=== PATIENT | male | born 1945 | race Caucasian/White ===

== ENCOUNTER → 2018-05-31 10:16 | Outpatient (CLI) | payer MEDICARE, OTHER, SELFPAY ==
--- NOTE | 2018-05-31 | DI.ECHO.S_ITS ---
[facility] +---------+ [facility] +---------+ : : [address] : : : : [id number] : : : : Phone: [phone] : : [phone] +---------+ Echocardiogram Report + + :Name: DACIA KHANNA Study Date: 05/31/2018 Height: 72 in : :[facility] Weight: 290 lb : : Gender: Male BSA: 2.5 m2 : :: 1945 Age: 73 yrs BP: 138/100 mmHg: :Reason For Study: Pulmonary - Hypertension : :Ordering Physician: Kenton : :Brad Performed By: Vanessa Kwon : :Referring: Suresh Iraheta : + + Interpretation Summary Left ventricular systolic function is normal with the ejection fraction grossly estimated to be 55-65% without obvious focal wall motion abnormalities noted but poor endocardial definition reduces the sensitivity for the detection of such. There is probable moderate concentric left ventricular hypertrophy but diastolic function could not be accurately assessed due to atrial fibrillation. The right ventricle is borderline dilated and right ventricular systolic function is at the lower limits of normal. The right ventricular systolic pressure is estimated at 43 mmHg assuming a right atrial pressure of 3 mm Hg. Both atria are moderately dilated. There is mild mitral regurgitation and mild to moderate tricuspid regurgitation. The aortic valve is moderately calcified with probable mild aortic stenosis with a peak aortic velocity of 2.6 m/sec and a mean gradient of 15 mmHg. The aortic root and aortic arch are mildly enlarged and the ascending aorta is moderately enlarged. The patient was in atrial fibrillation with heart rates between 59-78 bpm during the exam. Procedure: A two-dimensional transthoracic echocardiogram with color flow and Doppler was performed. The study quality was technically difficult. There is no prior echocardiogram noted for this patient. A contrast injection of Definity was performed to improve assessment of LV function. The patient was in atrial fibrillation with heart rates between 59-78 bpm during the exam. Left Ventricle: The left ventricle is normal in size. There is moderate concentric left ventricular hypertrophy. Left ventricular systolic function is normal. Left ventricular ejection fraction is estimated to be 55-65%. There are no obvious focal wall motion abnormalities noted but poor endocardial definition reduces the sensitivity for the detection of such. Diastolic function could not be accurately assessed due to atrial fibrillation. Right Ventricle: The right ventricle is borderline dilated. Right ventricular systolic function is at the lower limits of normal. Atria: Both atria are moderately dilated. The interatrial septum is intact with no evidence for an atrial septal defect. Mitral Valve: There is mild to moderate mitral annular calcification. The mitral valve is not well visualized. The mitral valve is grossly normal. There is mild mitral regurgitation. Aortic Valve: The aortic valve is not well visualized. The aortic valve is moderately calcified. Leaflet mobility is mild to moderately reduced. There is mild aortic stenosis. The peak aortic velocity is 2.6 m/sec. The aortic valve mean gradient is 15 mmHg. The calculated aortic valve area is 2.0 cm2. Severity ratio is 0.33. There is trace aortic regurgitation. Tricuspid Valve: The tricuspid valve leaflets are thin and pliable. There is mild to moderate tricuspid regurgitation. The right ventricular systolic pressure is estimated at 43 mmHg assuming a right atrial pressure of 3 mm Hg. Pulmonic Valve: The pulmonic valve is not well visualized. The pulmonic valve is not well seen, but is grossly normal. There is no pulmonic valvular regurgitation. Great Vessels: The aortic root is mildly dilated. The ascending aorta is moderately enlarged. The aortic arch is mildly enlarged. The IVC is of normal diameter and collapses greater than 50% with a sniff. This suggests a low right atrial pressure of 3 mm Hg. Pericardium/ Pleura There is no pericardial effusion. There is no pleural effusion. MMode/2D Measurements & Calculations LVIDd: 4.3 cm LVOT diam: 2.7 cm LVIDs: 2.9 cm Ao root diam: 3.8 cm FS: 34.1 % Aortic Jxn: 3.5 cm IVSd: 1.4 cm asc Aorta Diam: 4.0 cm LVPWd: 1.1 cm Ao Arch Diam (Prox Trans): 3.1 cm LV greenfield. diameter/BSA (cm/m^2): 1.7 LV sys. diameter/BSA (cm/m^2): 1.1 LA dimension: 5.3 cm RA long axis: 5.7 cm LA A2 area: 34.2 cm2 RA area: 26.7 cm2 LA A4 area: 25.3 cm2 RA vol: 106.6 ml LA length (vol): 6.0 cm RA : 42.7 ml/m2 LA vol: 122.6 ml IVC diam: 1.6 cm LA vol index: 49.1 ml/m2 RVDd major: 6.2 cm RVD1 (basal): 4.8 cm RVD2 (mid): 4.4 cm Doppler Measurements & Calculations Ao V2 max: 264.4 cm/sec LVOT Max Reyes: 104.0 cm/sec Ao V2 mean: 176.1 cm/sec LV V1 max P.3 mmHg Ao max P.0 mmHg LV V1 VTI: 18.2 cm Ao mean P.2 mmHg RASHAD(I,D): 2.0 cm2 Ao V2 VTI: 54.7 cm RASHAD(V,D): 2.3 cm2 sev ratio: 0.33 RASHAD indexed to BSA (cm^2/m^2): 0.78 MV E max reyes: 115.2 cm/sec TR max reyes: 315.3 cm/sec MV A max reyes: 29.5 cm/sec TR max P.8 mmHg MV E/A: 3.9 PA V2 max: 77.1 cm/sec MV dec time: 0.23 sec PA V2 mean: 48.5 cm/sec MV P1/2t: 67.6 msec PA mean P.2 mmHg PA Accel Time: 0.14 sec MV P1/2t max reyes: 115.4 cm/sec MVA(P1/2t): 3.3 cm2 Reading Physician:PM
== END ==
PROVIDERS: PCP Internal Medicine; Visit Provider Specialist
DX: I27.20 Pulmonary hypertension, unspecified (principal)
CPT/HCPCS: 93306; Q9957

== ENCOUNTER → 2020-01-07 14:57 | Outpatient (CLI) | payer MEDICARE, OTHER, SELFPAY ==
--- NOTE | 2020-01-07 | DI.ECHO.S_ITS ---
[place] +---------+ Hospital +---------+ : : [address] : : : : [id number] : : : : Phone: [phone] : : [phone] +---------+ Echocardiogram Report + + :Name: DACIA KHANNA Study Date: 01/07/2020 Height: 72 in : :[facility] Weight: 273 lb : : Gender: Male BSA: 2.4 m2 : :: 1945 Age: 75 yrs BP: 142/80 mmHg: :Reason For Study: pulmonary hypertension : :Ordering Physician: Eugenio : :Brad Performed By: Marielos Kwok : :Referring: EUGENIO MURPHY : + + Interpretation Summary The left ventricle is not well visualized but systolic function is likely normal without any obvious focal wall motion abnormalities with the ejection fraction grossly estimated to be 60-65%. There is moderate-severe concentric left ventricular hypertrophy but diastolic function could not be accurately assessed due to atrial fibrillation. There has been no significant change since the previous study. The right ventricle is mildly dilated and systolic function is likely mildly reduced but grossly appears grossly unchanged compared to the previous study. The right ventricular systolic pressure is estimated to be at least 32 mmHg based on an estimated right atrial pressure of 8 mm Hg but this is likely a significant underestimate given the angle of interrogation. Both atria are mildly dilated but both atria have significantly decreased in size since the prior echo exam. The aortic valve is not well visualized but there is probable moderate aortic stenosis that is likely mildly progressive compared to the previous study with a peak aortic velocity of 3.0 m/s and a mean gradient of 21 mmHg, compared to 2.6 m/s and 15 mmHg, respectively, previously. There is mild to moderate tricuspid regurgitation that is unchanged compared to the previous study. The aortic root and ascending aorta are mildly enlarged but unchanged compared to the previous study. The aortic arch is mildly enlarged and measures slightly larger compared to the previous study. The patient was in atrial fibrillation with heart rates between 61-81 bpm with occasional PVCs during the exam but this is unchanged compared to the previous study. Procedure: A two-dimensional transthoracic echocardiogram with color flow and Doppler was performed. The study quality was technically difficult. A contrast injection of Definity was performed to improve assessment of LV function. Comparison is made with the echocardiogram of 05/31/2018. The patient was in atrial fibrillation with heart rates between 61-81 bpm during the exam. The patient had occasional PVCs during the exam. This is unchanged compared to the previous study. Left Ventricle: The left ventricle is not well visualized. There is moderate-severe concentric left ventricular hypertrophy. The left ventricle is normal in size. Left ventricular systolic function is normal without focal wall motion abnormalities. The ejection fraction is estimated to be 60-65%. Diastolic function could not be accurately assessed due to atrial fibrillation. There has been no significant change since the previous study. Right Ventricle: The right ventricle is mildly dilated. Right ventricular systolic function is mildly reduced. This is grossly unchanged compared to the previous study. Atria: Both atria are mildly dilated. Both atria have significantly decreased in size since the prior echo exam. There is no Doppler evidence for an interatrial shunt. Mitral Valve: There is moderate mitral annular calcification. The mitral valve is not well visualized. There is trace mitral regurgitation. There has been no significant change since the previous study. Aortic Valve: The aortic valve is not well visualized. The aortic valve is moderately calcified. There is moderately reduced leaflet mobility. There is moderate aortic stenosis. This is likely mildly progressive compared to the previous study. The peak aortic velocity is 3.0 m/sec. The aortic valve mean gradient is 21 mmHg. There is trace aortic regurgitation. Tricuspid Valve: The tricuspid valve leaflets are thin and pliable. There is mild to moderate tricuspid regurgitation. This is unchanged compared to the previous study. The right ventricular systolic pressure is estimated to be at least 32 mmHg based on an estimated right atrial pressure of 8 mm Hg. But this is likely significant underestimate given the angle of interrogation. Pulmonic Valve: The pulmonic valve is not well visualized. The pulmonic valve is not well seen, but is grossly normal. There is no pulmonic valvular regurgitation. Great Vessels: The aortic root is mildly dilated. The ascending aorta is mildly enlarged. This is unchanged compared to the previous study. The aortic arch is mildly enlarged. This is slightly larger compared to the previous study. The IVC is dilated (diameter is greater than 2.1 cm) yet it collapses greater than 50% with a sniff. This suggests a right atrial pressure of 8 mm Hg. Pericardium/ Pleura There is no pericardial effusion. MMode/2D Measurements & Calculations LVIDd: 4.3 cm LVOT diam: 2.7 cm LVIDs: 2.9 cm Ao root diam: 3.8 cm FS: 31.9 % asc Aorta Diam: 3.9 cm IVSd: 1.8 cm Ao Arch Diam (Prox Trans): 3.4 cm LVPWd: 2.1 cm LV greenfield. diameter/BSA (cm/m^2): 1.8 LV sys. diameter/BSA (cm/m^2): 1.2 LA A2 area: 29.6 cm2 RA long axis: 6.5 cm LA A4 area: 24.7 cm2 RA area: 23.7 cm2 LA length (vol): 6.8 cm RA vol: 73.1 ml LA vol: 91.0 ml RA : 30.1 ml/m2 LA vol index: 37.4 ml/m2 IVC diam: 2.4 cm RVD1 (basal): 4.1 cm TAPSE: 1.8 cm Doppler Measurements & Calculations Ao V2 max: 296.7 cm/sec LVOT Max Reyes: 123.6 cm/sec Ao V2 mean: 217.2 cm/sec LV V1 max P.1 mmHg Ao max P.3 mmHg LV V1 VTI: 24.5 cm Ao mean P.1 mmHg RASHAD(I,D): 2.5 cm2 Ao V2 VTI: 54.4 cm RASHAD(V,D): 2.3 cm2 sev ratio: 0.45 RASHAD indexed to BSA (cm^2/m^2): 1.0 MV E max reyes: 89.3 cm/sec TR max reyes: 244.6 cm/sec MV A max reyes: 1.1 cm/sec TR max P.9 mmHg MV E/A: 79.9 PA V2 max: 85.7 cm/sec Med Peak E' Reyes: 6.7 cm/sec PA V2 mean: 59.2 cm/sec E/E' med: 13.3 PA mean P.6 mmHg Lat Peak E' Reyes: 6.6 cm/sec PA pr(Accel): 57.2 mmHg E/E' lat: 13.5 E/e' average: 13.4 MV dec time: 0.20 sec SV(LVOT): 138.1 ml Reading Physician:PURNIMA
== END ==
PROVIDERS: PCP Internal Medicine; Referring Provider Specialist; Visit Provider Specialist
DX: I08.2 Rheumatic disorders of both aortic and tricuspid valves (principal); I77.810 Thoracic aortic ectasia; I27.20 Pulmonary hypertension, unspecified
CPT/HCPCS: 93306; Q9957

== ENCOUNTER → 2022-12-13 14:50 | Outpatient (CLI) | payer MEDICARE, OTHER, SELFPAY ==
--- NOTE | 2022-12-13 14:53 | DI.ECHO.S_ITS ---
[facility] +---------+ [facility] +---------+ : : [address] : : : : [id number] : : : : Phone: [phone] : : [phone] +---------+ Echocardiogram Report + + :Name: DACIA KHANNA Study Date: 12/13/2022 Height: 72 in : :[facility] ReadingLocation: Weight: 242 lb : : Gender: Male BSA: 2.3 m2 : :: 1945 Age: 77 yrs BP: 110/77 mmHg: :Reason For Study: HEART FAILURE : :Ordering Physician: HOWIE WALDROPPerformed By: Marielos Kwok : :Referring: HOWIE WALDROP : + + Interpretation Summary The ejection fraction is estimated to be 55-60%. There is moderate-severe concentric left ventricular hypertrophy. The left atrium is severely dilated. There is mild mitral regurgitation. The mitral valve leaflets appear mildly thickened, but open well. There is severe aortic stenosis. The aortic valve mean gradient is 75 mmHg. There is moderate tricuspid regurgitation. The right ventricular systolic pressure is estimated to be at least 83 mmHg based on an estimated right atrial pressure of 15 mm Hg. has progressed, PHTN is worse. Procedure: A two-dimensional transthoracic echocardiogram with color flow and Doppler was performed. The study quality was technically adequate. Comparison is made with the echocardiogram of 01/07/2020. 01/16/2020: Patient reported a possible reaction to Definity contrast reporting dizziness, thirst, and fatigue and then later reported back and calf pain hours after his exam. While it is not clear this was a true reaction, Definity should be avoided for future studies. The patient was in atrial fibrillation with heart rates between 55-81 bpm during the exam. Left Ventricle: The left ventricle is normal in size. There is moderate- severe concentric left ventricular hypertrophy. The ejection fraction is estimated to be 55-60%. Left ventricular wall motion is normal. Diastolic function could not be accurately assessed due to atrial fibrillation. Right Ventricle: The right ventricle is mildly dilated. Right ventricular systolic function is mildly reduced. Atria: The left atrium is severely dilated. The right atrium is moderately dilated. There is no Doppler evidence for an interatrial shunt. Mitral Valve: There is moderate mitral annular calcification. The mitral valve leaflets appear mildly thickened, but open well. There is mild mitral regurgitation. Aortic Valve: The aortic valve is severely calcified. There is severely reduced leaflet mobility. There is severe aortic stenosis. The peak aortic velocity is 5.04 m/sec. The aortic valve mean gradient is 75 mmHg. The calculated aortic valve area is 0.64 cm2. There is mild aortic regurgitation. Tricuspid Valve: The tricuspid valve leaflets are thin and pliable. There is moderate tricuspid regurgitation. The right ventricular systolic pressure is estimated to be at least 83 mmHg based on an estimated right atrial pressure of 15 mm Hg. Pulmonic Valve: The pulmonic valve leaflets are thin and pliable; valve motion is normal. There is mild pulmonic regurgitation. Great Vessels: The aortic root is mildly dilated. The ascending aorta is mildly enlarged. The IVC is dilated (diameter is greater than 2.1 cm) and it collapses less than 50% with a sniff. This suggests a high right atrial pressure of 15 mm Hg. Pericardium/ Pleura There is no pericardial effusion. There is no pleural effusion. MMode/2D Measurements & Calculations LVIDd: 4.5 cm LVOT diam: 2.3 cm LVIDs: 2.9 cm Ao root diam: 3.8 cm FS: 35.0 % asc Aorta Diam: 4.0 cm IVSd: 1.8 cm Ao Arch Diam (Prox Trans): 3.1 cm LVPWd: 1.8 cm LV greenfield. diameter/BSA (cm/m^2): 2.0 LV sys. diameter/BSA (cm/m^2): 1.3 LA A2 area: 30.8 cm2 RA long axis: 6.1 cm LA A4 area: 27.8 cm2 RA area: 27.3 cm2 LA length (vol): 6.7 cm RA vol: 102.9 ml LA vol: 107.9 ml RA : 44.6 ml/m2 LA vol index: 46.7 ml/m2 IVC diam: 2.5 cm RVD1 (basal): 4.3 cm RVD2 (mid): 3.5 cm TAPSE: 1.6 cm Doppler Measurements & Calculations Ao V2 max: 504.2 cm/sec LVOT Max Reyes: 77.0 cm/sec Ao V2 mean: 384.9 cm/sec LV V1 max P.4 mmHg Ao max P.7 mmHg LV V1 VTI: 17.7 cm Ao mean P.5 mmHg RASHAD(I,D): 0.63 cm2 Ao V2 VTI: 118.0 cm RASHAD(V,D): 0.64 cm2 sev ratio: 0.15 RASHAD indexed to BSA (cm^2/m^2): 0.27 MV E max reyes: 158.1 cm/sec TR max reyes: 413.3 cm/sec MV A max reyes: 2.2 cm/sec TR max P.3 mmHg MV E/A: 71.6 PA V2 max: 127.2 cm/sec Med Peak E' Reyes: 4.6 cm/sec PA V2 mean: 93.9 cm/sec E/E' med: 34.2 PA mean P.8 mmHg Lat Peak E' Reyes: 9.1 cm/sec PA pr(Accel): 43.0 mmHg E/E' lat: 17.3 E/e' average: 25.7 MV dec time: 0.21 sec MVA(VTI): 2.3 cm2 MV V2 mean: 98.9 cm/sec SV(LVOT): 73.9 ml MV mean P.6 mmHg MV V2 VTI: 32.7 cm Reading Physician:04:38 PM
== END ==
PROVIDERS: PCP Internal Medicine; Referring Provider Internal Medicine; Visit Provider Internal Medicine
DX: I08.3 Combined rheumatic disorders of mitral, aortic and tricuspid valves (principal); I77.810 Thoracic aortic ectasia; I77.89 Other specified disorders of arteries and arterioles; I50.9 Heart failure, unspecified; I27.20 Pulmonary hypertension, unspecified
CPT/HCPCS: 93306

== ENCOUNTER → 2025-04-10 12:26 | Outpatient (CLI) | payer MEDICARE, OTHER, SELFPAY ==
--- NOTE | 2025-04-10 12:28 | DI.ECHO.S_ITS ---
[facility] +---------+ Hospital : : [address] : : [address] : : [id number] : : Phone: [phone] Echocardiogram Report + + :Name: DACIA KHANNA Study Date: 04/10/2025 Height: 72 in : :Hospital ReadingLocation: Weight: 234 lb : : Gender: Male BSA: 2.3 m2 : :: 1945 Age: 80 yrs BP: 133/86 mmHg: :Reason For Study: AORTIC VALVE STENOSIS : :Ordering Physician: EDWIN, : :COLIN SANTOS Performed By: Marielos Kwok : :Referring: COLIN BASHIR MD : + + Interpretation Summary The patient was in atrial fibrillation with heart rates between 56-72 bpm during the exam. The left ventricular cavity is small. There is severe concentric left ventricular hypertrophy. The ejection fraction is estimated to be 60-65%. E/E' med: 33.1 Borderline right ventricular enlargement. Right ventricular systolic function is mildly reduced. There is moderate to severe mitral annular calcification. The mitral valve mean gradient is 4.11 mmHg. There is mild mitral stenosis. There is mild mitral regurgitation. There is a bioprosthetic aortic valve. New bioprosthetic aortic valve. Previously severe aortic stenosis. The prosthetic aortic valve is well-seated. There is mild to moderate perivalvular regurgitation around the prosthetic aortic valve. The peak aortic velocity is 1.6 m/sec. The aortic valve mean gradient is 6 mmHg. There is moderate to severe tricuspid regurgitation. Hepatic vein systolic reversal, suggestive of significant tricuspid regurgitation. Previously moderate TR. The right ventricular systolic pressure is estimated to be at least 73 mmHg based on an estimated right atrial pressure of 15 mm Hg. Previously 83 mmHg. There is severe pulmonary hypertension. Procedure: A two-dimensional transthoracic echocardiogram with color flow and Doppler was performed. The study quality was technically adequate. Comparison is made with the echocardiogram of 12/13/2022. DO NOT USE DEFINITY. PRIOR REACTION 01/07/2020 Patient reported a possible reaction to Definity contrast reporting dizziness, thirst, and fatigue and then later reported back and calf pain hours after his exam. While it is not clear this was a true reaction, Definity should be avoided for future studies.. The patient was in atrial fibrillation with heart rates between 56-72 bpm during the exam. Left Ventricle: The left ventricular cavity is small. There is severe concentric left ventricular hypertrophy. There is no thrombus. The ejection fraction is estimated to be 60-65%. The interventricular septum is flattened, consistent with a right ventricular pressure/volume condition. Diastolic function could not be accurately assessed due to atrial fibrillation. Diastolic parameters suggest probable elevated filling pressures. E/E' med: 33.1. Right Ventricle: Borderline right ventricular enlargement. The right ventricle appears to be hypertrophied. Right ventricular systolic function is mildly reduced. Atria: The left atrium is moderately dilated. The right atrium is severely dilated. There is no Doppler evidence for an interatrial shunt. Mitral Valve: There is moderate to severe mitral annular calcification. The mitral valve chordae are thickened and/or calcified. The mitral valve mean gradient is 4.11 mmHg. There is mild mitral stenosis. There is mild mitral regurgitation. Aortic Valve: There is a bioprosthetic aortic valve. There is trace intravalvular regurgitation through the prosthetic aortic valve. There is mild to moderate perivalvular regurgitation around the prosthetic aortic valve. The prosthetic aortic valve is well-seated. The peak aortic velocity is 1.6 m/sec. The aortic valve mean gradient is 6 mmHg. The calculated aortic valve area is 2.0 cm2. Tricuspid Valve: There is tricuspid annular calcification. There is moderate to severe tricuspid regurgitation. Eccentric jet. There is severe pulmonary hypertension. The right ventricular systolic pressure is estimated to be at least 73 mmHg based on an estimated right atrial pressure of 15 mm Hg. Pulmonic Valve: The pulmonic valve is not well seen, but is grossly normal. There is no pulmonic valvular regurgitation. Great Vessels: The aortic root is normal size. The ascending aorta is at the upper limits of normal in size. There is mild luminal irregularity and echogenicity in the abdominal aorta, suggestive of aortic atherosclerotic disease. The IVC is dilated (diameter is greater than 2.1 cm) and it collapses less than 50% with a sniff. This suggests a high right atrial pressure of 15 mm Hg. Pericardium/ Pleura There is no pericardial effusion. There is no pleural effusion. MMode/2D Measurements & Calculations LVIDd: 3.9 cm LVOT diam: 2.1 cm LVIDs: 2.5 cm asc Aorta Diam: 3.9 cm FS: 34.8 % Ao Arch Diam (Prox Trans): 3.0 cm IVSd: 2.2 cm LVPWd: 1.7 cm LV greenfield. diameter/BSA (cm/m^2): 1.7 LV sys. diameter/BSA (cm/m^2): 1.1 LA A2 area: 24.9 cm2 RA long axis: 6.7 cm LA A4 area: 24.8 cm2 RA area: 29.0 cm2 LA length (vol): 6.2 cm RA vol: 106.8 ml LA vol: 84.2 ml RA : 46.9 ml/m2 LA vol index: 37.0 ml/m2 IVC diam: 2.3 cm RVD1 (basal): 4.0 cm RVD2 (mid): 3.0 cm TAPSE: 1.5 cm Doppler Measurements & Calculations Ao V2 max: 162.8 cm/sec LVOT Max Reyes: 94.7 cm/sec Ao V2 mean: 105.3 cm/sec LV V1 max P.6 mmHg Ao max P.8 mmHg LV V1 VTI: 18.7 cm Ao mean P.9 mmHg RASHAD(I,D): 2.3 cm2 Ao V2 VTI: 28.1 cm RASHAD(V,D): 2.0 cm2 sev ratio: 0.67 RASHAD indexed to BSA (cm^2/m^2): 1.0 AI P1/2t: 1168 msec AI dec slope: 77.2 cm/sec2 MV E max reyes: 150.6 cm/sec TR max reyes: 377.9 cm/sec MV A max reyes: 1.4 cm/sec TR max P.5 mmHg MV E/A: 106.8 PA V2 max: 103.1 cm/sec Med Peak E' Reyes: 4.6 cm/sec PA V2 mean: 62.8 cm/sec E/E' med: 33.1 PA mean P.9 mmHg Lat Peak E' Reyes: 4.4 cm/sec PA pr(Accel): 44.3 mmHg E/E' lat: 34.3 PA Accel Time: 0.07 sec E/e' average: 33.7 MV dec time: 0.22 sec MVA(VTI): 2.1 cm2 MV V2 mean: 93.0 cm/sec SV(LVOT): 65.4 ml MV mean P.1 mmHg MV V2 VTI: 30.5 cm Reading Physician:11:04 AM
== END ==
PROVIDERS: PCP Internal Medicine; Referring Provider Internal Medicine Interventional Cardiology; Visit Provider Internal Medicine Interventional Cardiology
DX: I35.0 Nonrheumatic aortic (valve) stenosis (principal); I48.91 Unspecified atrial fibrillation; I51.7 Cardiomegaly; I34.81 Nonrheumatic mitral (valve) annulus calcification; I34.0 Nonrheumatic mitral (valve) insufficiency; I05.0 Rheumatic mitral stenosis; Z95.2 Presence of prosthetic heart valve; I35.1 Nonrheumatic aortic (valve) insufficiency; I07.1 Rheumatic tricuspid insufficiency; I27.20 Pulmonary hypertension, unspecified
CPT/HCPCS: 93306